=== PATIENT | female | born 1955 | race Two or more races ===

== ENCOUNTER 2019-07-28 11:43 | Emergency (ER) | payer SELFPAY ==
[~2019-07-28] VITALS: Ht 154.9 cm; Wt 82.6 kg
[2019-07-28] MEDS ORDERED: IBUPROFEN 800 MG TAB PO ONE (14:15)
[2019-07-28 15:00] VITALS: BP 154/76
== END 2019-07-28 15:24 | disposition home or self-care (01) ==
LOC: ER 11:43
DX: S82.402D Unspecified fracture of shaft of left fibula, subsequent encounter for closed fracture with routine healing (principal); M79.632 Pain in left forearm; Z90.49 Acquired absence of other specified parts of digestive tract; W18.39XD Other fall on same level, subsequent encounter
CPT/HCPCS: 29505; 73562

== ENCOUNTER 2019-08-07 09:20 | Emergency (ER) | payer BC, OTHER ==
[~2019-08-07] VITALS: Ht 154.9 cm; Wt 82.6 kg
[2019-08-07 09:55] VITALS: BP 173/90
== END 2019-08-07 11:24 | disposition home or self-care (01) ==
LOC: ER 09:20
DX: S83.91XA Sprain of unspecified site of right knee, initial encounter (principal); Z90.49 Acquired absence of other specified parts of digestive tract; W19.XXXA Unspecified fall, initial encounter; Y93.89 Activity, other specified; Y99.8 Other external cause status; Y92.89 Other specified places as the place of occurrence of the external cause
CPT/HCPCS: 73562